=== PATIENT | male | born 1965 | race Two or more races ===

== ENCOUNTER 2021-01-26 17:24 | Inpatient (IN) | payer OTHER ==
[~2021-01-26] VITALS: Ht 218.4 cm; Wt 79.4 kg
[2021-01-26] MEDS: NOREPINEPHRINE 8 MG/250ML KIT 250 ML IV SCH ×2 (18:04→18:35)
[2021-01-26 22:56] LABS: Basophils # (auto) 0.2 10 ^3/uL (0-0.2); Basophils % (auto) 2.4 % (0.0-2.0); Eosinophils # (auto) 0 10 ^3/uL (0-0.8); Lymphocytes # (auto) 0.8 10 ^3/uL (0.4-5.4); Lymphocytes % (auto) 10.7 % (10.0-50.0); Mean Corpuscular Hemoglobin 29.7 pg (28.0-32.0); Mean Corpuscular Hgb Conc. 33.5 g/dL (32.0-36.0); Mean Corpuscular Volume 88.6 fL (80.0-100.0); Monocytes % (auto) 13.5 % (0.0-12.0); Neutrophils # (auto) 5.5 10 ^3/uL (1.6-8.6); Neutrophils % (auto) 73.4 % (37.0-80.0); Nucleated Red Blood Cells % 0.1 %; Red Blood Cells 4.06 10^6/uL (4.5-5.90); Red Cell Distribution Width 14.7 % (11.8-14.3); White Blood Cell 7.5 10^3/uL (4.4-10.8)
[2021-01-26 23:14] LABS: Albumin 2.1 g/dL (3.4-5.0); Magnesium 1.6 mg/dL (1.6-2.6); Potassium 3.8 mmol/L (3.5-5.1)
[2021-01-26 23:20] LABS: Bilirubin, Total 0.3 mg/dL (0.2-1.0); Total Protein 5.5 g/dL (6.4-8.2)
[2021-01-26 23:28] LABS: Calcium 5.2 mg/dL (8.5-10.1)
[2021-01-26] MEDS ORDERED: CALCIUM GLUC 1,000mg/50ml-NS 50 ML IV ONE (23:45)
[2021-01-27] MEDS ORDERED: LACTATED RINGER'S 1,000 ML IV ONE (00:30)
[2021-01-27 00:42] LABS: Albumin 2.7 g/dL (3.4-5.0); Potassium 3.9 mmol/L (3.5-5.1)
[2021-01-27 00:46] LABS: BUN/Creatinine Ratio 7.5; Bilirubin, Total 0.3 mg/dL (0.2-1.0); Total Protein 6.1 g/dL (6.4-8.2)
[2021-01-27 00:55] LABS: Calcium 5.8 mg/dL (8.5-10.1)
[2021-01-27] MEDS ORDERED: CALCIUM GLUC 1,000mg/50ml-NS 50 ML IV ONE (01:00)
[2021-01-27] MEDS ORDERED: REMDESIVIR PER PHARMACY 0 ML IV SCH (01:30)
[2021-01-27] MEDS ORDERED: MORPHINE SULF INJ 2 MG/ML SYRINGE 1ML IV PRN (01:30)
[2021-01-27] MEDS ORDERED: HYDROcodone-ACET 5/325MG TAB PO PRN (01:30)
[2021-01-27] MEDS ORDERED: SODIUM CHL 0.9% 1000 ML BAG XX ONE (01:30)
[2021-01-27] MEDS ORDERED: DOCUSATE SOD 100 MG CAP PO PRN (01:30)
[2021-01-27] MEDS ORDERED: ACETAMINOPHEN 325 MG TAB PO PRN (01:30)
[2021-01-27] MEDS ORDERED: ALUM & MAG HYDROX-SIMETH LIQ(MAALOX) 30 ML PO PRN (01:30)
[2021-01-27] MEDS ORDERED: DEXTROSE (50%) 50ML SYRG IV PRN (01:30)
[2021-01-27] MEDS ORDERED: ONDANSETRON HCL 4 MG/2 ML VIAL IV PRN (01:30)
[2021-01-27] MEDS ORDERED: SODIUM CHLORIDE 0.9% 1,000 ML IV SCH ×2 (01:30→08:30)
[2021-01-27] MEDS ORDERED: ACETAMINOPHEN 500 MG TAB PO PRN (01:30)
[2021-01-27 01:42] VITALS: BP 92/59
[2021-01-27] MEDS ORDERED: AZITHROMYCIN 500MG/ 250ML 250 ML IV SCH (02:00)
[2021-01-27] MEDS ORDERED: DexAMETHasone SOD PHOS 10MG/1ML VIAL INJ IV SCH (02:00)
[2021-01-27] MEDS: ACCU-CHEK COMFORT CURVE STRIP VI SCH ×5 (04:30→20:30)
[2021-01-27] MEDS: InsuLIN REG 1unit/0.01ml Soln (100units/ml) SC SCH ×5 (04:38→21:34)
[2021-01-27] MEDS ORDERED: CLOPIDOGREL BISULFATE 75 MG TAB PO SCH (10:00)
[2021-01-27] MEDS ORDERED: ASPirin 81 mg TAB PO SCH (10:00)
[2021-01-27] MEDS ORDERED: FLORASTOR (S. BOULARDII) 250 MG CAP PO SCH (10:00)
[2021-01-27] MEDS ORDERED: ZINC SULFATE 220mg CAP or TAB PO SCH (10:00)
[2021-01-27] MEDS ORDERED: ENOXAPARIN SOD 40 MG/0.4 ML SYRINGE SC SCH (10:00)
[2021-01-27] MEDS ORDERED: CHOLECALCIFEROL (VITD3) 2,000 UNIT CAP/TAB PO SCH (10:00)
[2021-01-27] MEDS ORDERED: CARVEDILOL 3.125 MG TAB PO SCH (10:00)
[2021-01-27] MEDS ORDERED: ASCORBIC ACID 1,000 MG TAB PO SCH (10:00)
[2021-01-27 10:27] LABS: BUN/Creatinine Ratio 10.1; Calcium 6.3 mg/dL (8.5-10.1); Potassium 3.6 mmol/L (3.5-5.1)
[2021-01-27] MEDS ORDERED: MAGNESIUM SULFATE 1GM/100ML 100 ML IV ONE (10:30)
[2021-01-27] MEDS: BUDESONIDE (INHALATION) 180 MCG IH IN SCH ×2 (10:59→18:25)
[2021-01-27] MEDS: ALBUTEROL SULF HFA 90MCG INH 200DOSE IN PRN ×2 (11:00→18:25)
[2021-01-27 11:01] LABS: Urine Amorphous Crystal FEW /hpf (None Seen); Urine Bacteria NONE SEEN /hpf (None Seen); Urine Blood Negative /uL (Negative); Urine Hyaline Cast FEW /lpf (0 - 2); Urine Mucus FEW (None Seen); Urine Specific Gravity 1.022 (1.001-1.035); Urine WBC 15 /hpf (0 - 3)
[2021-01-27 11:15] LABS: Protein, Urine 103.4 mg/dL (0.0-11.9)
[2021-01-27 11:16] LABS: Cholesterol 96 mg/dL (< 200); HDL Cholesterol 23 mg/dL (40-59); LDL Cholesterol 33 mg/dL (< 100); Triglycerides 312 mg/dL (< 150)
[2021-01-27] MEDS ORDERED: SOD CHL IV SCH (13:00)
[2021-01-27] MEDS ORDERED: [UNRECOGNIZED DRUG - OTHER] IV SCH (13:00)
[2021-01-27] MEDS ORDERED: BUMETANIDE 2.5mg/10ml (0.25 mg/ml) INJ IV ONE (13:00)
[2021-01-27] MEDS: SODIUM BICARBONATE 50ML VIAL 75 ML in SOD CHL 0.45% 1,000 ML IV SCH ×2 (15:18→23:42)
[2021-01-27] MEDS ORDERED: IVERMECTIN 3 MG TAB PO SCH (17:00)
[2021-01-27] MEDS ORDERED: METO-158 PO (18:28)
[2021-01-27] MEDS ORDERED: CINA30TA3 PO (18:28)
[2021-01-27] MEDS ORDERED: CALC0.25 PO (18:28)
[2021-01-27] MEDS ORDERED: SPIR25TA8 PO (18:28)
[2021-01-27] MEDS ORDERED: CALC600T49 PO (18:28)
[2021-01-27] MEDS ORDERED: MULT-1058 PO (18:28)
[2021-01-27] MEDS ORDERED: TACR1CAP4 PO (18:28)
[2021-01-27] MEDS ORDERED: POTATAB5 PO (18:28)
[2021-01-27] MEDS ORDERED: MYCO1TAB2 PO (18:28)
[2021-01-27] MEDS ORDERED: NIFE10CA3 PO (18:28)
[2021-01-27] MEDS ORDERED: PRE5T PO (18:28)
[2021-01-27] MEDS ORDERED: TAMS0.4C36 PO (18:28)
[2021-01-27] MEDS ORDERED: CLON0.1T PO (18:28)
[2021-01-27] MEDS ORDERED: MAGN400C3 PO (18:28)
[2021-01-27] MEDS ORDERED: TACROLIMUS 1 MG CAP PO SCH (22:00)
[2021-01-27] MEDS ORDERED: ATORVASTATIN 20 MG TAB PO SCH (22:00)
[2021-01-28] MEDS: ACCU-CHEK COMFORT CURVE STRIP VI SCH
[2021-01-28] MEDS: SODIUM BICARBONATE 50ML VIAL 75 ML in SOD CHL 0.45% 1,000 ML IV SCH (02:15)
[2021-01-28] MEDS: InsuLIN REG 1unit/0.01ml Soln (100units/ml) SC SCH (02:30)
[2021-01-28 04:57] VITALS: BP 112/81
[2021-01-28] MEDS ORDERED: TACROLIMUS 1 MG CAP PO SCH (10:00)
== END 2021-01-28 04:57 | disposition short-term general hospital (02) | DRG 871 ==
LOC: ER 17:24 → EDBD 17:24 → TELE 01-27 01:29
PROVIDERS: ADMIT Hospitalist; ATTEND Internal Medicine
PROC: XW033E5 Introduction of Remdesivir Anti-infective into Peripheral Vein, Percutaneous Approach, New Technology Group 5 (ICD-10-PCS; principal; 2021-01-27)
DX: A41.89 Other specified sepsis (principal); I21.A1 Myocardial infarction type 2; J12.82 Pneumonia due to coronavirus disease 2019; J96.01 Acute respiratory failure with hypoxia; N17.0 Acute kidney failure with tubular necrosis; R65.21 Severe sepsis with septic shock; U07.1 COVID-19; E87.2 Acidosis; T86.19 Other complication of kidney transplant; I12.9 Hypertensive chronic kidney disease with stage 1 through stage 4 chronic kidney disease, or unspecified chronic kidney disease; N18.9 Chronic kidney disease, unspecified; E11.22 Type 2 diabetes mellitus with diabetic chronic kidney disease; N40.0 Benign prostatic hyperplasia without lower urinary tract symptoms; Y83.0 Surgical operation with transplant of whole organ as the cause of abnormal reaction of the patient, or of later complication, without mention of misadventure at the time of the procedure; Y92.89 Other specified places as the place of occurrence of the external cause
CPT/HCPCS: 36415; 36556; 70450; 71045; 80048; 80053; 80061; 81001; 82570; 82962; 83036; 83735; 84156; 84300; 84443; 84484; 85025; 87426; 93005; 93886; 94640; 96361; 96365; G0378; J1100; J1815; J2405; J7507